=== PATIENT | male | born 1960 | race Caucasian/White ===

== ENCOUNTER 2025-06-21 01:46 | Day surgery (SDC) | payer MEDICARE, SELFPAY ==
[2025-06-14 11:24] VITALS: BMI 33.0
[2025-06-21 09:47] VITALS: BP 135/88; PULSE 96; RESP 18; TEMP 36.6; O2SAT 97
[2025-06-21] MEDS: LACTATED RINGERS 1,000 ML 150 ML IV CONT (10:05)
--- NOTE | 2025-06-21 10:10 | WPDANESEPPF ---
Anes - Initial Pre Proc Eval Procedure: Operation Date: 06/21/25 11:15 Proposed Procedures p Screening Colonoscopy - Calixto Morris MD Date/Time: 06/21/25 10:10 Surgeon: Calixto Morris MD Pre Op Diagnosis: Encounter for screening for malignant neoplasm of Patient Data Age: 64 Gender: M Height: 1.71 m Weight: 94.5 kg Last Vital Signs Temp 36.6 C 06/21/25 09:47 Pulse 96 06/21/25 09:47 Resp 18 06/21/25 09:47 BP 135/88 06/21/25 09:47 Pulse Ox 97 06/21/25 09:47 O2 Del Method Room Air 06/21/25 09:47 Allergies Allergy/AdvReac Type Severity Reaction Status Date / Time No Known Allergies Allergy Verified 06/21/25 09:45 Home Medications ?Medication ?Instructions ?Recorded ?Confirmed ?Type ezetimibe 10 mg tablet 10 mg PO DAILY 06/14/25 06/21/25 History lisinopril 20 1 tablet PO DAILY 06/14/25 06/21/25 History mg-hydrochlorothiazide 25 mg tablet Patient hx anesthesia problems: none Family hx anesthesia problems: none Results Review: All pre-operative results and documents have been reviewed as part of the pre-operative evaluation. COUNT INCLUDES THE [facility] Past Medical History Medical History (Updated 06/20/25 @ 15:26 by Carlos Hamilton DO) Hypertension Hyperlipidemia Social History Social History Smoking status: Never smoker Substance use type: does not use Living arrangements: with family Additional living arrangements comments: with sp Anes - Eval Final PreProcedure Day of Procedure 06/21/25 10:10 Patient weight: obese Heart: regular rate and rhythm Lungs: clear to auscultation Airway: Mallampati scale class II Neurological: alert and oriented Last oral intake: >/= 8 hours ASA classification: III Emergent: no Anesthetic plan: proceed Anesthesia type and monitoring: general GIVS and standard monitoring Results Review: All pre-operative results and documents have been reviewed as part of the pre-operative evaluation. Informed Consent: The patient's anesthetic plan and its attendant risks and benefits were discussed with the patient/family/POA. Questions were solicited and answers provided to the satisfaction of the patient/family/POA.
--- NOTE | 2025-06-21 11:36 | PM.IMHP ---
H&P: HPI History of Present Illness Date/Time: 06/21/25 11:36 Chief Complaint: Screening colonoscopy Narrative: This is the patient's first colonoscopy after 12 years. There are no GI symptoms and there is no family history of colorectal cancer. Review of Systems Review of Systems: All systems reviewed & are unremarkable except as noted in HPI and below PMFSH Past Medical History Medical History (Updated 06/21/25 @ 11:37 by Calixto Morris MD) Hypertension Hyperlipidemia Social History Social History Smoking status: Never smoker Substance use type: does not use Living arrangements: with family Additional living arrangements comments: with sp Meds Home Medications and Allergies Home Medications ?Medication ?Instructions ?Recorded ?Confirmed ?Type ezetimibe 10 mg tablet 10 mg PO DAILY 06/14/25 06/21/25 History lisinopril 20 1 tablet PO DAILY 06/14/25 06/21/25 History mg-hydrochlorothiazide 25 mg tablet Allergies Allergy/AdvReac Type Severity Reaction Status Date / Time No Known Allergies Allergy Verified 06/21/25 09:45 Vital Signs Vital Signs - 24 hr 06/21/25 09:47 Temperature 97.8 F Pulse Rate 96 Respiratory Rate 18 Blood Pressure 135/88 Pulse Oximetry 97 Oxygen Delivery Room Air Exam Const: General: cooperative and healthy appearing Resp: Effort & Inspection: normal respiratory effort and able to speak in complete sentences Auscultation: clear to auscultation bilaterally Cardio: Rate: regular rate Rhythm: regular rhythm GI: Inspection: normal to inspection GI Palp: No No hepatosplenomegaly present Auscultation: normal bowel sounds Rectal Exam: deferred Skin: General skin exam: normal color Psych: Appearance: grossly normal Mental Status: mental status grossly normal Assessment and Plan Assessment and plan (1) Encounter for screening colonoscopy: Code(s): Z12.11 - Encounter for screening for malignant neoplasm of colon Status: Acute Assessment and Plan: The patient is deemed a good candidate for the procedure. Consent signed. Will proceed.
[2025-06-21] MEDS: SIMETHICONE ORAL SUSPENSION 20 MG/0.3 ML 30 ML BOTTLE 0.6 ML IRRIGATION (12:05)
--- NOTE | 2025-06-21 12:07 | S_PTH ---
PATIENT: Sim Monsalve LOC: NEO #:[id number] AGE/SX: 64/M ROOM: RE06/21/[address]: Calixto Morris MD : 1960 BED: DIS: 06/21/2025 SPEC #: [id number] RECD: 06/21/25 12:41 STATUS: LEAH REQ #: [id number] MATHEW: 06/21/25 12:[address]: Calixto Morris DEPT: [facility] Surgical RECD BY: Rex Schultz ENTERED: 06/21/25 12:41 SP TYPE: Surgical OTHR DR: Lanette Nascimento, RESIDENTIAL [employer] Tissues: A - Colon Polypectomy Procedures: Hematoxylin and Eosin Stain Gross and Microscopic Level 4
[2025-06-21 12:11] VITALS: BP 117/80; PULSE 72; RESP 18; O2SAT 96
[2025-06-21 12:21] VITALS: BP 114/81; PULSE 70; RESP 17; O2SAT 98
[2025-06-21 12:31] VITALS: BP 132/92; PULSE 70; RESP 20; O2SAT 99
== END 2025-06-21 12:47 | disposition home or self-care (01) ==
PROVIDERS: PCP Nurse Practitioner Family; Referring Provider Nurse Practitioner Family; Visit Provider Internal Medicine Gastroenterology
PROC: 0DJD8ZZ Inspection of Lower Intestinal Tract, Via Natural or Artificial Opening Endoscopic (ICD-10-PCS; CPT 45378; principal; 2025-06-21 11:15)
DX: Z12.11 Encounter for screening for malignant neoplasm of colon (principal); D12.0 Benign neoplasm of cecum; K64.8 Other hemorrhoids; I10 Essential (primary) hypertension; E78.5 Hyperlipidemia, unspecified; E66.9 Obesity, unspecified; Z68.32 Body mass index [BMI] 32.0-32.9, adult
CPT/HCPCS: 45390; 88305; J2003; J2704; J7120